=== PATIENT | female | born 1995 | race Caucasian/White ===

== ENCOUNTER 2016-10-23 20:15 | Emergency (ER) | payer MEDICAID ==
[~2016-10-23] VITALS: Ht 167.6 cm; Wt 59.0 kg
--- NOTE | 2016-10-23 20:50 | NUR ---
SEEN AND EXAMINED BY SIDDHARTH WITH ORDERS...AWAITING CEZAR SOTO
[2016-10-23 21:02] LABS: *BILIRUBIN,URIN NEGATIVE (NEGATIVE); *BLOOD, URINE 1+ (NEGATIVE); *CLARITY,URINE SLIGHTLY CLOUDY (CLEAR); *COLOR,URINE YELLOW (YELLOW); *KETONES,URINE 2+ (NEGATIVE); *PROTEIN,URINE NEGATIVE (NEGATIVE); *UROBILINOGEN,URINE 0.2 E.U./dl (NORMAL); LEUKOCYTE ESTERASE ,URINE NEGATIVE (NEGATIVE); NITRITE, URINE NEGATIVE (NEGATIVE); PH,URINE 5.5 (5.0-8.0); UGLUCOSE NEGATIVE (NEGATIVE)
[2016-10-23 21:26] LABS: BACTERIA,URINE RARE /HPF (NONE SEEN); SQUAMOUS EPITHELIAL CELL,UR FEW /HPF (NONE SEEN); WBC,URINE 0-3 /HPF (0-3)
--- NOTE | 2016-10-23 22:12 | NUR ---
RESULTS OF CHARLES IN, ACI GIVEN TO PT,ADVISED PT TO ASK HER INSURANCE TO GET HER OB DR AND HAVE APPT FOR [facility].. HAVE A QUANT TEST DONE IN 1 WEEK OR ORDERED BY OWN OB DR. VERBALIZED UNDERSTANDING OF ACI, DISCHARGED AMBULATORY IN STABLE CONDITION.
[2016-10-23 22:17] VITALS: BP 118/70
== END 2016-10-23 22:17 | disposition home or self-care (01) ==
LOC: ER 20:18
DX: O20.0 Threatened abortion (principal); Z3A.01 Less than 8 weeks gestation of pregnancy
CPT/HCPCS: 36415; 76856; 81001; 84702; 99285; A4663

== ENCOUNTER 2018-01-15 23:25 | Emergency (ER) | payer MEDICAID ==
[~2018-01-15] VITALS: Ht 167.6 cm; Wt 52.2 kg
[2018-01-16] MEDS ORDERED: LIDOCAINE HCL 1% 20 ML VIAL TP ONE
[2018-01-16] MEDS ORDERED: ONDANSETRON ODT 4 MG TAB.RAPDIS SL ONE
[2018-01-16] MEDS ORDERED: HYDROCODONE/APAP 10-325 MG TABLET PO ONE
[2018-01-16] MEDS ORDERED: ONDANSETRON ODT 4 MG TAB.RAPDIS ONE (00:03)
[2018-01-16] MEDS ORDERED: HYDROCODONE/APAP 10-325 MG TABLET ONE (00:03)
--- NOTE | 2018-01-16 00:35 | NUR ---
PT IN BED RESTING QUIETLY WITH EYES OPEN. PT IS CALM AND COOPERATIVE. NO SIGNS OF DISTRESS WITNESSED AT THIS TIME.
--- NOTE | 2018-01-16 01:15 | NUR ---
Patient eloped from facility. ER physician notified.
== END 2018-01-16 01:00 | disposition left against medical advice (07) ==
LOC: ER 23:28
DX: S99.922A Unspecified injury of left foot, initial encounter (principal); X58.XXXA Exposure to other specified factors, initial encounter; Y93.89 Activity, other specified; Y92.89 Other specified places as the place of occurrence of the external cause; Y99.8 Other external cause status
CPT/HCPCS: A4663; J3490; Q0162

== ENCOUNTER 2018-04-27 04:40 | Emergency (ER) | payer MEDICAID ==
[~2018-04-27] VITALS: Ht 167.6 cm; Wt 68.0 kg
[2018-04-27] MEDS ORDERED: AMOXICILLIN SUS (04:54)
[2018-04-27] MEDS ORDERED: IBUPROFEN 100 MG/5 ML SUSP (04:54)
--- NOTE | 2018-04-27 05:20 | NUR ---
Pt came in from triage c/o bilat lower jaw pain s/p bilat lower wisdom teeth extraction x 4 days ago. Per pt, sutures came out. Pt unable to eat because food gets stuck in the site and d/t pain. No swelling or inflammation to extraction sites noted. Tenderness to L side of neck during palpation. Call light within reach. will cont to monitor.
--- NOTE | 2018-04-27 05:24 | NUR ---
Patient discharged to home in stable conditon. Written and verbal after care instructions given. Patient verbalizes understanding of instructions. Encourage patient to come back if pain or symptoms worsen.
--- NOTE | 2018-04-27 05:27 | NUR ---
Ice chips given for comfort.
== END 2018-04-27 05:27 | disposition home or self-care (01) ==
LOC: ER 04:43
DX: K08.89 Other specified disorders of teeth and supporting structures (principal)
CPT/HCPCS: 99283; A4663